=== PATIENT | female | born 1980 | race American Indian/Alaskan Native ===

== ENCOUNTER 2018-08-18 14:57 | Emergency (ER) | payer OTHER, MEDICAID ==
[2018-08-18 15:13] VITALS: BP 126/71
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
== END 2018-08-18 16:39 | disposition home or self-care (01) ==
LOC: ED 14:57
DX: G44.209 Tension-type headache, unspecified, not intractable (principal); V87.7XXA Person injured in collision between other specified motor vehicles (traffic), initial encounter; Y93.89 Activity, other specified; Y92.488 Other paved roadways as the place of occurrence of the external cause; Y99.8 Other external cause status
CPT/HCPCS: 99282